=== PATIENT | male | born 1965 | race Two or more races ===

== ENCOUNTER 2018-07-08 08:47 | Emergency (ER) | payer SELFPAY ==
[2018-07-08] MEDS ORDERED: ASPIRIN 81 MG TABLET, CHEWABLE PO ONE (09:46)
--- NOTE | 2018-07-08 09:48 | ER Document Report ---
ED Medical Screen (RME) - General Chief Complaint: Leg Swelling Stated Complaint: LEG SWELLING AND PAIN Time Seen by Provider: 07/08/18 09:37 Primary Care Provider: MAIKEL SKAGGS [Primary Care Provider] - Follow up as needed Mode of Arrival: Ambulatory Information source: Patient, Relative TRAVEL OUTSIDE OF THE [place] IN LAST 30 DAYS: No - HPI Patient complains to provider of: LEG SWELLING, CP Notes: 07/08/18 09:47 Patient here with family member at the bedside helping with communication by interpreting. Patient has a history of high blood pressure as well as leg swelling. For the last few months he is noticed increased leg swelling is been having some intermittent chest pain. He supposed to be on blood pressure medication as well as diuretics but does not take them. Patient does drink alcohol daily. Exam No distress, nontoxic. Heart sounds normal. Lungs clear. Pitting edema to the bilateral lower extremities. Plan CBC, CMP, CPK, CK-MB, BNP, troponin, EKG, chest x-ray. An initial examination was made on the patient as part of the triage process, and it was determined a more comprehensive evaluation was necessary. Initial labs were ordered and patient was transferred to another provider in the ED who assumed care and finished evaluation and plan. - Related Data Allergies/Adverse Reactions: No Known Allergies Allergy (Unverified 07/08/18 08:50) Physical Exam - Vital signs Vitals: Temp Pulse Resp BP Pulse Ox 97.7 F 87 18 209/115 H 94 07/08/18 08:54 07/08/18 08:54 07/08/18 08:54 07/08/18 08:54 07/08/18 08:54 Course - Vital Signs Vital signs: Temp Pulse Resp BP Pulse Ox 97.7 F 87 18 209/115 H 94 07/08/18 08:54 07/08/18 08:54 07/08/18 08:54 07/08/18 08:54 07/08/18 08:54 Doctor's Discharge - Discharge Referrals: MAIKEL SKAGGS [Primary Care Provider] - Follow up as needed
[2018-07-08 10:18] LABS: ABSOLUTE LYMPHOCYTES (AUTO) 0.7 10^3/uL (0.5-4.7); ABSOLUTE MONOCYTES (AUTO) 0.3 10^3/uL (0.1-1.4); ABSOLUTE NEUT (AUTO) 1.4 10^3/uL (1.7-8.2); BASOPHILS % (AUTO) 0.8 % (0-2); EOSINOPHILS % (AUTO) 1.7 % (0-6); HEMATOCRIT 43.7 % (37.9-51.0); LYMPHOCYTES % (AUTO) 29.8 % (13-45); MEAN CORPUSCULAR HEMOGLOBIN 33.2 pg (27.0-33.4); MEAN CORPUSCULAR HGB CONC 34.2 g/dL (32.0-36.0); MEAN CORPUSCULAR VOLUME 97 fl (80-97); MONOCYTES % (AUTO) 10.3 % (3-13); RED BLOOD COUNT 4.51 10^6/uL (4.35-5.55); SEGMENTED NEUTROPHILS % (AUTO) 57.4 % (42-78); TOTAL CELLS COUNTED % (AUTO) 100 %; WHITE BLOOD COUNT 2.4 10^3/uL (4.0-10.5)
--- NOTE | 2018-07-08 10:34 | RADIOLOGY REPORT (SQ) ---
EXAM DESCRIPTION: CHEST SINGLE VIEW COMPLETED DATE/TIME: 07/08/2018 10:18 am REASON FOR STUDY: CP, LEG SWELLING COMPARISON: None. EXAM PARAMETERS: NUMBER OF VIEWS: One view. TECHNIQUE: Single frontal radiographic view of the chest acquired. RADIATION DOSE: NA LIMITATIONS: Poor inspiratory effort. FINDINGS: LUNGS AND PLEURA: No opacities, masses or pneumothorax. No pleural effusion. MEDIASTINUM AND HILAR STRUCTURES: No masses. Contour normal. HEART AND VASCULAR STRUCTURES: Cardiomegaly. Normal vasculature. BONES: No acute findings. HARDWARE: None in the chest. OTHER: No other significant finding. IMPRESSION: Cardiomegaly. No acute findings. TECHNICAL DOCUMENTATION: JOB ID: [id number] [employer]- All Rights Reserved Reading location - IP/workstation name: [email or web address]
[2018-07-08 10:46] LABS: PLATELET COUNT 53 10^3/uL (150-450)
[2018-07-08 10:52] LABS: ALANINE AMINOTRANSFERASE 36 U/L (21-72); ALBUMIN 4.1 g/dL (3.5-5.0); ALKALINE PHOSPHATASE 141 U/L (38-126); ANION GAP 12 (5-19); ASPARTATE AMINO TRANSFERASE 76 U/L (17-59); BILIRUBIN,DIRECT 0.6 mg/dL (0.0-0.4); BILIRUBIN,TOTAL 2.9 mg/dL (0.2-1.3); BLOOD UREA NITROGEN 6 mg/dL (7-20); CALCIUM 8.4 mg/dL (8.4-10.2); CARBON DIOXIDE 28 mmol/L (22-30); CHLORIDE 104 mmol/L (98-107); CREATINE KINASE 226 U/L (55-170); GLUCOSE 134 mg/dL (75-110); POTASSIUM 3.6 mmol/L (3.6-5.0); SODIUM 144.4 mmol/L (137-145); TOTAL PROTEIN 9.1 g/dL (6.3-8.2)
--- NOTE | 2018-07-08 10:57 | EKG REPORT ---
SEVERITY:- ABNORMAL ECG - SINUS RHYTHM NONSPECIFIC INTRAVENTRICULAR CONDUCTION DELAY : Confirmed by: Bethany Akbar 08-Jul-2018 10:57:13
[2018-07-08 11:07] LABS: NT PRO BNP 42 pg/mL (5-900)
[2018-07-08 11:08] LABS: TROPONIN I < 0.012 ng/mL
--- NOTE | 2018-07-08 14:10 | ER Document Report ---
ED Extremity Problem, Lower - General Chief Complaint: Leg Swelling Stated Complaint: LEG SWELLING AND PAIN Time Seen by Provider: 07/08/18 09:37 Primary Care Provider: MAIKEL SKAGGS [Primary Care Provider] - Follow up as needed Mode of Arrival: Ambulatory Notes: 53-year-old male to the emergency room chief complaint of swelling to his bilateral lower extremities. Wants to make sure that there is not a problem with his blood. States that it does hurt intermittently. Denies any trauma to the legs. No history of blood clots or DVTs. No other major issues at this time. Patient does state that he does not drink a lot of water but drinks a lot of beer. Patient had with a motor vehicle parts interpreter over the phone. TRAVEL OUTSIDE OF THE [place] IN LAST 30 DAYS: No - HPI Patient complains to provider of: Pain, Swelling Location: Leg Occurred: Other - 6 months ago - Related Data Allergies/Adverse Reactions: No Known Allergies Allergy (Unverified 07/08/18 08:50) Past Medical History - General Information source: Patient, Relative - Social History Smoking Status: Never Smoker Chew tobacco use (# tins/day): No Frequency of alcohol use: Heavy Drug Abuse: None Family History: Hypertension Patient has suicidal ideation: No Patient has homicidal ideation: No - Past Medical History Cardiac Medical History: Reports: Hx Hypertension Renal/ Medical History: Denies: Hx Peritoneal Dialysis Review of Systems - Review of Systems Notes: Constitutional: denies: Chills, Diaphoresis, Fever, Malaise, Weakness EENT: denies: Eye discharge, Blurred vision, Tearing, Double vision, Nose congestion, Nose discharge, Throat swelling, Mouth pain Cardiovascular: denies: Palpitations, Heart racing, Orthopnea, Dyspnea, Chest pain Respiratory: denies: Cough, Hurts to breathe, Wheezing, Shortness of breath Gastrointestinal: denies: Abdominal pain, Diarrhea, Nausea, Vomiting, Black stools, bright red blood in stool Genitourinary: denies: Burning, Dysuria, Discharge, Frequency, Flank pain, Hematuria Musculoskeletal: denies: Joint pain, Joint swelling, Muscle pain, Muscle stiffness, back pain. Complaining of swelling to his bilateral lower extremities. Hematologic/Lymphatic: denies: Anemia, Easy bleeding, Easy bruising, Blood clots Neurological/Psychological: denies: Confusion, Dementia, Depression, Loss of consciousness Skin: No lesions, no masses, no skin breakdown, no abscesses Physical Exam - Vital signs Vitals: Temp Pulse Resp BP Pulse Ox 97.7 F 87 18 209/115 H 94 07/08/18 08:54 07/08/18 08:54 07/08/18 08:54 07/08/18 08:54 07/08/18 08:54 Interpretation: Hypertensive - General General appearance: Appears well, Alert - HEENT Head: Normocephalic, Atraumatic Eyes: Normal Pupils: PERRL - Respiratory Respiratory status: No respiratory distress Chest status: Nontender Breath sounds: Normal Chest palpation: Normal - Cardiovascular Rhythm: Regular Heart sounds: Normal auscultation Murmur: No - Abdominal Inspection: Normal Distension: No distension Bowel sounds: Normal Tenderness: Nontender Organomegaly: No organomegaly - Back Back: Normal, Nontender - Extremities General upper extremity: Normal inspection, Nontender, Normal color, Normal ROM, Normal temperature General lower extremity: Normal inspection, Nontender, Edema - 2+ pitting edema to the bilateral feet and pretibial area. Bounding pulses of the dorsalis pedis bilaterally. No obvious skin breakdown on the bottom of the feet or toes. No signs of cellulitis., Normal color, Normal ROM, Normal temperature, Normal weight bearing. No: Lucien's sign - Neurological Neuro grossly intact: Yes Cognition: Normal Orientation: AAOx4 Marlon Coma Scale Eye Opening: Spontaneous Marlon Coma Scale Verbal: Oriented Marlon Coma Scale Motor: Obeys Commands [place] Coma Scale Total: 15 Speech: Normal Motor strength normal: LUE, RUE, LLE, RLE Sensory: Normal - Psychological Associated symptoms: Normal affect, Normal mood - Skin Skin Temperature: Warm Skin Moisture: Dry Skin Color: Normal Course - Re-evaluation Re-evalutation: 07/08/18 17:30 This is a [place] Citizen-speaking only 53-year-old male with lower extremity edema who reports heavy drinking. Does not appear intoxicated at this time. 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 Does have elevated liver function studies. Does have a leukopenia as well as thrombocytopenia. No fever. A hepatitis panel was ordered. He is hypertensive so we will more likely start him on some antihypertensive medication. Will order a lower extre mity ultrasound. His chest x-ray reveals cardiomegaly however his BNP is fairly unremarkable. 07/08/18 17:31 07/08/18 17:32 07/08/18 17:32 07/08/18 17:33 Laboratory 07/08/18 07/08/18 07/08/18 10:02 10:02 10:02 WBC 2.4 L RBC 4.51 Hgb 15.0 Hct 43.7 MCV 97 MCH 33.2 MCHC 34.2 RDW 16.0 H Plt Count 53 L Seg Neutrophils % 57.4 Lymphocytes % 29.8 Monocytes % 10.3 Eosinophils % 1.7 Basophils % 0.8 Absolute Neutrophils 1.4 L Absolute Lymphocytes 0.7 Absolute Monocytes 0.3 Absolute Eosinophils 0.0 Absolute Basophils 0.0 PT INR APTT Sodium 144.4 Potassium 3.6 Chloride 104 Carbon Dioxide 28 Anion Gap 12 BUN 6 L Creatinine 0.44 L Est GFR ( Amer) > 60 Est GFR (Non-Af Amer) > 60 Glucose 134 H Calcium 8.4 Total Bilirubin 2.9 H Direct Bilirubin 0.6 H Neonat Total Bilirubin Not Reportable Neonat Direct Bilirubin Not Reportable Neonat Indirect Bili Not Reportable AST 76 H ALT 36 Alkaline Phosphatase 141 H Creatine Kinase 226 H CK-MB (CK-2) 1.50 Troponin I < 0.012 NT-Pro-B Natriuret Pep 42 Total Protein 9.1 H Albumin 4.1 07/08/18 10:02 WBC RBC Hgb Hct MCV MCH MCHC RDW Plt Count Seg Neutrophils % Lymphocytes % Monocytes % Eosinophils % Basophils % Absolute Neutrophils Absolute Lymphocytes Absolute Monocytes Absolute Eosinophils Absolute Basophils PT 16.7 H INR 1.29 APTT 42.9 H Sodium Potassium Chloride Carbon Dioxide Anion Gap BUN Creatinine Est GFR ( Amer) Est GFR (Non-Af Amer) Glucose Calcium Total Bilirubin Direct Bilirubin Neonat Total Bilirubin Neonat Direct Bilirubin Neonat Indirect Bili AST ALT Alkaline Phosphatase Creatine Kinase CK-MB (CK-2) Troponin I NT-Pro-B Natriuret Pep Total Protein Albumin Chest X-Ray 07/08/18 09:46 IMPRESSION: Cardiomegaly. No acute findings. - Vital Signs Vital signs: Temp Pulse Resp BP Pulse Ox 97.7 F 87 17 177/97 H 93 07/08/18 08:54 07/08/18 08:54 07/08/18 17:01 07/08/18 17:01 07/08/18 17:01 - Laboratory Result Diagrams: 07/08/18 10:02 07/08/18 10:02 Laboratory results interpreted by me: 07/08/18 07/08/18 07/08/18 10:02 10:02 10:02 WBC 2.4 L RDW 16.0 H Plt Count 53 L Absolute Neutrophils 1.4 L PT 16.7 H APTT 42.9 H BUN 6 L Creatinine 0.44 L Glucose 134 H Total Bilirubin 2.9 H Direct Bilirubin 0.6 H AST 76 H Alkaline Phosphatase 141 H Creatine Kinase 226 H Total Protein 9.1 H - EKG Interpretation by Me EKG shows normal: Sinus rhythm, [place], QRS Complexes, ST-T Waves. abnormal: Intervals - Nonspecific intraventricular conduction delay Discharge - Discharge Clinical Impression: Peripheral edema, Thrombocytopenia Hypertension Qualifiers: Hypertension type: unspecified Qualified Code(s): I10 - Essential (primary) hypertension Leukopenia Qualifiers: Leukopenia type: unspecified Qualified Code(s): D72.819 - Decreased white blood cell count, unspecified Condition: Good Disposition: HOME, SELF-CARE Instructions: Edema, Peripheral ([facility]), Thrombocytopenia ([facility]), High Blood Pressure, Requiring Treatment ([facility]) Prescriptions: Furosemide [Lasix 40 mg Tablet] 40 mg PO QAM 30 Days #30 tablet Losartan Potassium [Cozaar 50 mg Tablet] 50 mg PO DAILY 30 Days #30 tablet Potassium Chloride 20 meq PO DAILY 30 Days #30 tablet.er Referrals: GONZALES WATSON MD [ACTIVE STAFF] - Follow up in 3-5 days GORDY SUMMERS MD [ACTIVE STAFF] - Follow up in 3-5 days Print Language: [place] Citizen
[2018-07-08] MEDS ORDERED: FUROSEMIDE 40 MG TABLET PO ONE (15:43)
[2018-07-08] MEDS ORDERED: LOSARTAN POTASSIUM 50 MG TABLET PO ONE (15:44)
[2018-07-08 16:37] LABS: INTERNATIONAL RATION (INR) 1.29; PROTHROMBIN TIME 16.7 SEC (11.4-15.4)
[2018-07-08 16:38] LABS: PARTIAL THROMBOPLASTIN TIME 42.9 SEC (23.5-35.8)
--- NOTE | 2018-07-08 23:07 | RADIOLOGY REPORT (SQ) ---
EXAM DESCRIPTION: [facility]: US EXTREMITY VEINS BILATERAL CLINICAL HISTORY: 53 years Male; edema bilateral with pain TECHNIQUE: Multiple grayscale sonographic images of both legs were obtained utilizing a high-frequency linear array transducer supplemented with color Doppler, compression and augmentation techniques. COMPARISON: None. FINDINGS: Right leg veins: Common femoral: normal Greater saphenous: normal upper Superficial femoral: normal mid Superficial femoral: normal lower Superficial femoral: normal Popliteal: normal Posterior Tibial: normal Left leg veins: Common femoral: normal Greater saphenous: normal upper Superficial femoral: normal mid Superficial femoral: normal lower Superficial femoral: normal Popliteal: normal Posterior Tibial: normal 1 x 1.2 x 1.3 cm cystic structure in the popliteal fossa is likely a Cope's cyst. IMPRESSION: 1. No sonographic evidence for lower extremity deep venous thrombosis in either leg. 2. Probable left Cope's cyst.
[2018-07-08 23:12] VITALS: BP 137/88
[2018-07-10 10:37] LABS: HEPATITIS A AB IGM Negative (Negative); HEPATITIS B CORE AB IGM Negative (Negative); HEPATITS B SURFACE ANTIGEN Negative (Negative)
[2018-07-10 11:16] LABS: HEPATITIS C VIRUS ANTIBODY <0.1 s/co ratio (0.0-0.9)
== END 2018-07-08 21:11 | disposition home or self-care (01) ==
LOC: ER 08:47
DX: R60.0 Localized edema (principal); D69.6 Thrombocytopenia, unspecified; I10 Essential (primary) hypertension; D72.819 Decreased white blood cell count, unspecified; M79.89 Other specified soft tissue disorders; M79.604 Pain in right leg; M79.605 Pain in left leg
CPT/HCPCS: 36415; 71045; 80053; 80074; 82550; 82553; 83880; 84484; 85025; 85610; 85730; 93005; 93010; 93970; 99284

== ENCOUNTER 2018-09-11 08:20 | Emergency (ER) | payer SELFPAY ==
[2018-09-11 10:35] LABS: ALANINE AMINOTRANSFERASE 24 U/L (21-72); ALBUMIN 3.7 g/dL (3.5-5.0); ALKALINE PHOSPHATASE 109 U/L (38-126); ANION GAP 5 (5-19); ASPARTATE AMINO TRANSFERASE 48 U/L (17-59); BILIRUBIN,DIRECT 0.2 mg/dL (0.0-0.4); BILIRUBIN,TOTAL 2.3 mg/dL (0.2-1.3); BLOOD UREA NITROGEN 11 mg/dL (7-20); CALCIUM 8.7 mg/dL (8.4-10.2); CARBON DIOXIDE 30 mmol/L (22-30); CHLORIDE 103 mmol/L (98-107); GLUCOSE 249 mg/dL (75-110); POTASSIUM 3.6 mmol/L (3.6-5.0); TOTAL PROTEIN 7.9 g/dL (6.3-8.2)
[2018-09-11 12:21] LABS: ABSOLUTE EOSINOPHILS # (AUTO) 0.1 10^3/uL (0.0-0.6); ABSOLUTE LYMPHOCYTES (AUTO) 0.8 10^3/uL (0.5-4.7); ABSOLUTE MONOCYTES (AUTO) 0.4 10^3/uL (0.1-1.4); ABSOLUTE NEUT (AUTO) 2.1 10^3/uL (1.7-8.2); BASOPHILS % (AUTO) 0.9 % (0-2); EOSINOPHILS % (AUTO) 3.7 % (0-6); HEMATOCRIT 39.1 % (37.9-51.0); HEMOGLOBIN 13.8 g/dL (13.5-17.0); LYMPHOCYTES % (AUTO) 22.7 % (13-45); MEAN CORPUSCULAR HEMOGLOBIN 33.8 pg (27.0-33.4); MEAN CORPUSCULAR HGB CONC 35.3 g/dL (32.0-36.0); MEAN CORPUSCULAR VOLUME 96 fl (80-97); MONOCYTES % (AUTO) 11.3 % (3-13); RED BLOOD COUNT 4.07 10^6/uL (4.35-5.55); RED CELL DISTRIBUTION WIDTH 14.8 % (11.5-14.0); SEGMENTED NEUTROPHILS % (AUTO) 61.4 % (42-78); TOTAL CELLS COUNTED % (AUTO) 100 %; WHITE BLOOD COUNT 3.4 10^3/uL (4.0-10.5)
[2018-09-11 12:43] LABS: PLATELET COUNT 55 10^3/uL (150-450)
--- NOTE | 2018-09-11 14:27 | ER Document Report ---
ED General - General Chief Complaint: Leg Swelling Stated Complaint: LEG PAIN Time Seen by Provider: 09/11/18 09:05 TRAVEL OUTSIDE OF THE [place] IN LAST 30 DAYS: No - HPI Notes: Patient is a 53-year-old male presents to the emergency department for evaluation. His friend is with him, he acts as service center representative, as the patient speaks no Finnish. The patient is able to consent to this. The patient is here complaining of bilateral leg swelling. This is been going on for the last few years. He is concerned because he has intermittent changing in the color of his legs, states they are turning black. He denies any numbness or tingling. He states he was given medication to help with this. He admits that this is only from the emergency medicine doctor. He has not establish care with a primary care physician. He states he has intermittent pain and pressure in his legs but denies any of that now. He denies any chest pain or trouble breathing. He states his swelling is improved when he wakes in the morning. - Related Data Allergies/Adverse Reactions: acetaminophen [From Tylenol] Allergy (Verified 09/11/18 08:21) Past Medical History - General Information source: Patient, Friend - Social History Smoking Status: Never Smoker Family History: DM, Hypertension Patient has suicidal ideation: No Patient has homicidal ideation: No - Past Medical History Cardiac Medical History: Reports: Hx Hypertension Renal/ Medical History: Denies: Hx Peritoneal Dialysis Review of Systems - Review of Systems Constitutional: No symptoms reported EENT: No symptoms reported Cardiovascular: See HPI Respiratory: No symptoms reported Gastrointestinal: No symptoms reported Male Genitourinary: No symptoms reported Musculoskeletal: See HPI Skin: See HPI Neurological/Psychological: No symptoms reported Physical Exam - Vital signs Vitals: Temp Pulse Resp BP Pulse Ox 98.8 F 86 20 166/91 H 95 09/11/18 08:25 09/11/18 08:25 09/11/18 08:25 09/11/18 08:25 09/11/18 08:25 - Notes Notes: Vital signs reviewed, please refer to chart. Head is normocephalic, atraumatic. Pupils equal round, reactive to light. Neck is supple without meningismus. Heart is regular rate and rhythm. Lungs are clear to auscultation bilaterally. Abdomen is soft, nontender, normoactive bowel sounds throughout. Extremities without cyanosis, clubbing. He has 2+ edema to bilateral lower extremities, to the midshin. He has skin changes consistent with hemosiderin deposit and chronic vascular disease. Posterior calves are nontender. Peripheral pulses are equal. Skin is warm and dry. Patient is awake, alert, neurological exam is nonfocal. Course - Re-evaluation Re-evalutation: 09/11/18 14:25 Patient presents emergency department for evaluation. He is hypertensive. He admits he is not had any of the blood pressure medication that he was taken before. He was told to wear compression stockings in the past but does not wear them. He has not establish care with a primary care physician as of yet. He has no posterior calf tenderness. He has had Dopplers in the past which were unremarkable. He is oxygenating well. His lungs are clear. At this point metabolic panel and CBC were ordered. His bilirubin had been high in the past, it is improving slightly. Otherwise his laboratory investigations revealed a significant hyperglycemia. This is new. The patient was notified of this, as well as his likely diagnosis of diabetes. He was given compression stockings here. I will then treat him for his high blood pressure. We discussed the mechanism by which he has impeded vascular flow. His peripheral pulses are excellent, it is more just venous return that is an issue. He is told to lose weight. He is told to wear compression stockings. I will then treat him for high blood pressure as well as diabetes. The importance of follow-up with a primary care provider was stressed and great detail. He voiced understanding to this. Otherwise we will send him home on the losartan, which he Monroe been taking, as well as low-dose metformin. He is to return to the ED with worsening or new concerning symptoms of any sort. - Vital Signs Vital signs: Temp Pulse Resp BP Pulse Ox 98.8 F 86 20 166/91 H 95 09/11/18 08:25 09/11/18 08:25 09/11/18 08:25 09/11/18 08:25 09/11/18 08:25 - Laboratory Result Diagrams: 09/11/18 12:12 09/11/18 10:00 Laboratory results interpreted by me: 09/11/18 09/11/18 10:00 12:12 WBC 3.4 L RBC 4.07 L MCH 33.8 H RDW 14.8 H Plt Count 55 L Creatinine 0.44 L Glucose 249 H Total Bilirubin 2.3 H Discharge - Discharge Clinical Impression: Peripheral edema, Peripheral vascular disease, Thrombocytopenia Hypertension Qualifiers: Hypertension type: unspecified Qualified Code(s): I10 - Essential (primary) hypertension Diabetes Qualifiers: Diabetes mellitus type: type 2 Diabetes mellitus snf insulin 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 Follow-up with primary care physician as soon as possible. Take medications as prescribed. Return to the emergency department with worsening or new concerning symptoms of any sort.
[2018-09-11 15:26] VITALS: BP 187/99
== END 2018-09-11 15:27 | disposition home or self-care (01) ==
LOC: ER 08:20
DX: R60.0 Localized edema (principal); I73.9 Peripheral vascular disease, unspecified; D69.6 Thrombocytopenia, unspecified; I10 Essential (primary) hypertension; E11.9 Type 2 diabetes mellitus without complications
CPT/HCPCS: 36415; 80053; 85025; 99283

== ENCOUNTER 2019-05-10 14:44 | Inpatient (IN) | payer OTHER ==
--- NOTE | 2019-05-10 15:15 | ER Document Report ---
ED Medical Screen (RME) - General Chief Complaint: Leg Pain Stated Complaint: LEG PAIN Time Seen by Provider: 05/10/19 15:04 Mode of Arrival: Ambulatory Information source: Patient Notes: 53-year-old male with history of high blood pressure, disheveled, reports to the emergency department with left lower leg pain. Patient reports he hit his leg approximately 20 days ago and now has a wound that is draining. Patient wound is approximately 15 x 10 to the anterior of his left quiroz, draining. He denies history of diabetes but diabetes was mentioned on his last visit. Denies fever vomiting diarrhea. Patient speaks [place] only. I have greeted and performed a rapid initial assessment of this patient. A comprehensive ED assessment and evaluation of the patient, analysis of test res ults and completion of the medical decision making process will be conducted by additional ED providers. TRAVEL OUTSIDE OF THE [place] IN LAST 30 DAYS: No - Related Data Allergies/Adverse Reactions: acetaminophen [From Tylenol] Allergy (Verified 09/11/18 08:21) Past Medical History - Past Medical History Cardiac Medical History: Reports: Hx Hypertension Renal/ Medical History: Denies: Hx Peritoneal Dialysis Physical Exam - Vital signs Vitals: Temp Pulse Resp BP Pulse Ox 99.8 F 112 H 22 H 163/100 H 98 05/10/19 14:53 05/10/19 14:53 05/10/19 14:53 05/10/19 14:53 05/10/19 14:53 Course - Vital Signs Vital signs: Temp Pulse Resp BP Pulse Ox 99.8 F 112 H 22 H 163/100 H 98 05/10/19 14:53 05/10/19 14:53 05/10/19 14:53 05/10/19 14:53 05/10/19 14:53
--- NOTE | 2019-05-10 16:09 | RADIOLOGY REPORT (SQ) ---
EXAM DESCRIPTION: TIBIA FIBULA LEFT COMPLETED DATE/TIME: 05/10/2019 3:52 pm REASON FOR STUDY: PAIN, OPEN WOUND COMPARISON: None. NUMBER OF VIEWS: Two views. TECHNIQUE: Two radiographic images acquired of the left tibia and fibula to include the knee and ank le in at least one projection. LIMITATIONS: None. FINDINGS: MINERALIZATION: Osteopenia. BONES: No acute fracture or dislocation. There is no erosion or periosteal reaction. SOFT TISSUES: No subcutaneous emphysema or radiopaque foreign body. OTHER: No other finding. IMPRESSION: No acute osseous abnormality of the left tibia and fibula. TECHNICAL DOCUMENTATION: JOB ID: [id number] 2010 [employer]- All Rights Reserved Reading location - IP/workstation name: [email or web address]
[2019-05-10 16:28] LABS: VENOUS BLOOD BASE EXCESS 5.6 mmol/L; VENOUS BLOOD HCO3 31.4 mmol/L (20-32); VENOUS BLOOD PCO2 49.7 mmHg (35-63); VENOUS BLOOD PH 7.42 (7.30-7.42)
[2019-05-10 16:30] LABS: ABSOLUTE LYMPHOCYTES (AUTO) 0.5 10^3/uL (0.5-4.7); ABSOLUTE MONOCYTES (AUTO) 0.3 10^3/uL (0.1-1.4); ABSOLUTE NEUT (AUTO) 3.9 10^3/uL (1.7-8.2); BASOPHILS % (AUTO) 0.3 % (0-2); EOSINOPHILS % (AUTO) 0.9 % (0-6); HEMATOCRIT 44.9 % (37.9-51.0); LYMPHOCYTES % (AUTO) 9.6 % (13-45); MEAN CORPUSCULAR HGB CONC 35.6 g/dL (32.0-36.0); MEAN CORPUSCULAR VOLUME 98 fl (80-97); MONOCYTES % (AUTO) 6.6 % (3-13); RED BLOOD COUNT 4.58 10^6/uL (4.35-5.55); RED CELL DISTRIBUTION WIDTH 17.1 % (11.5-14.0); SEGMENTED NEUTROPHILS % (AUTO) 82.6 % (42-78); TOTAL CELLS COUNTED % (AUTO) 100 %; WHITE BLOOD COUNT 4.7 10^3/uL (4.0-10.5)
[2019-05-10 16:43] LABS: PLATELET COUNT 79 10^3/uL (150-450)
[2019-05-10 16:45] LABS: ALKALINE PHOSPHATASE 190 U/L (38-126); ANION GAP 9 (5-19); ASPARTATE AMINO TRANSFERASE 92 U/L (17-59); BILIRUBIN,TOTAL 3.3 mg/dL (0.2-1.3); BLOOD UREA NITROGEN 5 mg/dL (7-20); CALCIUM 8.5 mg/dL (8.4-10.2); CARBON DIOXIDE 31 mmol/L (22-30); CHLORIDE 98 mmol/L (98-107); GLUCOSE 118 mg/dL (75-110); POTASSIUM 3.7 mmol/L (3.6-5.0); TOTAL PROTEIN 10.2 g/dL (6.3-8.2)
[2019-05-10] MEDS ORDERED: DIPH/PERTUSS(ACELL)/TETANUS VAC/PF 0.5 ML SYR (>=10YO) IM ONE (17:12)
[2019-05-10] MEDS ORDERED: VANCOMYCIN HCL INJ 1000 MG VIAL IV ONE (17:12)
[2019-05-10] MEDS ORDERED: AMPICILLIN SOD/SULBACTAM 3 GM VIAL IV ONE (17:13)
--- NOTE | 2019-05-10 17:18 | ER Document Report ---
Entered by FABIO LARSEN SCRIBE 05/10/19 [id number] Acting as scribe for:MARISELA VIRAMONTES DO ED Extremity Problem, Lower - General Chief Complaint: Wound Infection Stated Complaint: LEG PAIN Time Seen by Provider: 05/10/19 15:04 Mode of Arrival: Ambulatory Information source: Patient Notes: This 53-year-old male patient presents to the emergency department today with co mplaints of an ulceration to his left anterior quiroz. Patient had a mechanical fall 3 weeks ago at home when he scraped his left quiroz on a step. Since this misstep he has had increasing swelling, pain, and drainage from the left quiroz. Family at bedside reports that the patient never goes to see a doctor and did not want to come today but they made him. Patient denies fevers or chills. TRAVEL OUTSIDE OF THE [place] IN LAST 30 DAYS: No - Related Data Allergies/Adverse Reactions: acetaminophen [From Tylenol] Allergy (Verified 09/11/18 08:21) Past Medical History - General Information source: Patient - Social History Smoking Status: Never Smoker Cigarette use (# per day): No Frequency of alcohol use: Occasional Drug Abuse: Marijuana Lives with: Family Family History: DM, Hypertension Patient has suicidal ideation: No Patient has homicidal ideation: No - Past Medical History Cardiac Medical History: Reports: Hx Hypertension Review of Systems - Review of Systems Constitutional: denies: Fever EENT: No symptoms reported Cardiovascular: No symptoms reported Respiratory: No symptoms reported Gastrointestinal: No symptoms reported Genitourinary: No symptoms reported Male Genitourinary: No symptoms reported Musculoskeletal: No symptoms reported Skin: See HPI, Lesions Hematologic/Lymphatic: No symptoms reported Neurological/Psychological: No symptoms reported -: Yes All other systems reviewed and negative Physical Exam - Vital signs Vitals: Temp Pulse Resp BP Pulse Ox 99.8 F 112 H 22 H 163/100 H 98 05/10/19 14:53 05/10/19 14:53 05/10/19 14:53 05/10/19 14:53 05/10/19 14:53 - Notes Notes: Physical Exam: General: Alert, chronically ill-appearing, obese. HEENT: Normocephalic. Atraumatic. PERRL. Extraocular movements intact. No posterior oropharynx erythema or exudate, airway is patent. TMs are clear and non-bulging bilaterally. Poor dentition throughout. Neck: Supple. Non-tender. Respiratory: No respiratory distress. Clear and equal breath sounds bilaterally. Cardiovascular: Regular rate and rhythm. Abdominal: Morbidly obese. Non-tender. No distension. Normal Bowel Sounds. Back: No gross abnormalities. Extremities: Moves all four extremities. Upper extremities: Normal inspection. Normal ROM. Lower extremities: Left anterior tibia has a 15 cm x 10 cm ulceration that is somewhat malodorous with serous discharge. Left lower extremity is moderately larger than the right lower extremity. Neurological: Normal cognition. AAOx4. Normal speech. Psychological: Normal affect. Normal Mood. Skin: See lower extremity exam Course - Re-evaluation Re-evalutation: 05/10/19 17:45 MDM 53 year old male is noncompliant with follow up care - only visits locally have been in ED ever - has had a distant tetanus shot "many years ago" and left anterior quiroz ulcer. He has sts of that left leg and the ulcer has a bit of an odor to it and has increased in size at home. 05/10/19 17:52 Verbal report from the [facility] is that the ultrasound is - for dvt. 05/10/19 17:52 [address] have discussed [address] Dr[address] Ramesh and he has graciously agreed to see and evaluate for admission. - Vital Signs Vital signs: Temp Pulse Resp BP Pulse Ox 99.8 F 112 H 22 H 163/100 H 98 05/10/19 14:53 05/10/19 14:53 05/10/19 14:53 05/10/19 14:53 05/10/19 14:53 - Laboratory Result Diagrams: 05/10/19 16:03 05/10/19 16:03 Laboratory results interpreted by me: 05/10/19 05/10/19 05/10/19 16:03 16:03 16:05 MCV 98 H MCH 35.0 H RDW 17.1 H Plt Count 79 L Lymph % (Auto) 9.6 L Seg Neutrophils % 82.6 H Carbon Dioxide 31 H BUN 5 L Creatinine 0.49 L Glucose 118 H Total Bilirubin 3.3 H Direct Bilirubin 1.0 H AST 92 H Alkaline Phosphatase 190 H C-Reactive Protein 34.6 H Total Protein 10.2 H - Diagnostic Test Radiology reviewed: Reports reviewed Discharge - Discharge Clinical Impression: Diabetic leg ulcer, Thrombocytopenia Hypertension Qualifiers: Hypertension type: unspecified Qualified Code(s): I10 - Essential (primary) hypertension Condition: Good Disposition: ADMITTED INPATIENT Admitting Provider: Gadiel (Hospitalist) Unit Admitted: Medical Floor I personally performed the services described in the documentation, reviewed and edited the documentation which was dictated to the scribe in my presence, and it accurately records my words and actions.
--- NOTE | 2019-05-10 18:18 | RADIOLOGY REPORT (SQ) ---
EXAM DESCRIPTION: VENOUS UNILATERAL LOWER COMPLETED DATE/TIME: 05/10/2019 6:00 pm REASON FOR STUDY: left leg pain/ swelling COMPARISON: None. TECHNIQUE: Dynamic and static brenner scale and color images acquired of the left leg venous system. Se lected spectral images acquired with additional compression and augmentation maneuvers. The contralat eral common femoral vein and saphenofemoral junction were also imaged. Images stored on PACS. LIMITATIONS: None. FINDINGS: COMMON FEMORAL: Normal phasicity, compression and augmentation. No visualized echogenic ma terial on brenner scale. No defects on color images. FEMORAL: Normal compression and augmentation. No visualized echogenic material on brenner scale. No defe cts on color images. POPLITEAL: Normal compression, augmentation. No visualized echogenic material on brenner scale. No defec ts on color images. CALF VESSELS: Normal compression, augmentation. No visualized echogenic material on brenner scale. No de fects on color images. GSV and SSV: Normal compression, augmentation. No visualized echogenic material on brenner scale. No def ects on color images. ANY DEEP VENOUS INSUFFICIENCY: Not evaluated. ANY EVIDENCE OF POPLITEAL CYST: No. OTHER: No other significant finding. CONTRALATERAL COMMON FEMORAL VEIN AND SAPHENOFEMORAL JUNCTION: Normal phasicity, compression and augmentation. No visualized echogenic material on brenner scale. No de fects on color images. IMPRESSION: NO EVIDENCE OF DVT OR SVT IN THE LEFT LEG. TECHNICAL DOCUMENTATION: JOB ID: [id number] [id number] 2010 [employer]- All Rights Reserved Reading location - IP/workstation name: [email or web address]
[2019-05-10] MEDS ORDERED: TEMAZEPAM 7.5 MG CAPSULE PO PRN (18:57)
[2019-05-10] MEDS ORDERED: ONDANSETRON 4 MG TAB.RAPDIS PO PRN (18:57)
[2019-05-10] MEDS ORDERED: IPRATROPIUM/ALBUTEROL 0.5-2.5 MG/3 ML AMPUL NEB PRN (18:57)
[2019-05-10] MEDS ORDERED: GLUCAGON,HUMAN RECOMB 1 MG INJ IM PRN (19:05)
[2019-05-10] MEDS ORDERED: DEXTROSE 40% GEL 15 GM TUBE PO PRN ×2 (19:05)
[2019-05-10] MEDS ORDERED: DEXTROSE 50%-WATER 25 GM/50 ML DISP.SYRIN IV PRN ×2 (19:05)
--- NOTE | 2019-05-10 19:21 | PDOC H&P ---
History of Present Illness Patient complains of: Swelling and pain in his legs History of Present Illness: NATALIE ZHANG is a 53 year old male Patient presents to the emergency room with swelling and pain in his legs. Patient is Tamaz[place]-speaking and most of the information is obtained from the ED records He apparently fell about 3 weeks ago at home and he scraped his left quiroz on a step. He has since had some drainage and swelling of the same leg. He really does not proceed a physician but came here today due to his symptoms. Doppler studies were done and this revealed no embolism give a prior history of hypertension and his blood Barry was found to be mildly elevated Past Medical History Cardiac Medical History: Reports: Hypertension Past Surgical History Past Surgical History: Reports: None Social History Information Source: [facility], [facility] Records Lives with: Family Smoking Status: Never Smoker - Advance Directive Resuscitation Status: Full Code Family History Family History: DM, Hypertension Parental Family History Reviewed: No Children Family History Reviewed: Yes Sibling(s) Family History Reviewed.: No Medication/Allergy Home Medications: Furosemide [Lasix 40 mg Tablet] 40 mg PO QAM 30 Days #30 tablet 07/08/18 Potassium Chloride 20 meq PO DAILY 30 Days #30 tablet.er 07/08/18 Losartan Potassium [Cozaar 50 mg Tablet] 50 mg PO DAILY 30 Days #30 tablet 09/11/18 Metformin HCl [Glucophage 500 mg Tablet] 500 mg PO BID #60 tablet 09/11/18 Allergies/Adverse Reactions: acetaminophen [From Tylenol] Allergy (Verified 09/11/18 08:21) Review of Systems All systems: reviewed and no additional remarkable complaints except as stated Constitutional: PRESENT: headache(s) Eyes: ABSENT: visual disturbances Nose, Mouth, and Throat: ABSENT: sore throat Cardiovascular: ABSENT: chest pain, orthropnea Respiratory: ABSENT: dyspnea Neurological: PRESENT: as per HPI Physical Exam Vital Signs: Temp Pulse Resp BP Pulse Ox 99.8 F 112 H 22 H 163/100 H 98 05/10/19 14:53 05/10/19 14:53 05/10/19 14:53 05/10/19 14:53 05/10/19 14:53 Intake & Output 05/09/19 05/10/19 05/11/19 06:59 06:59 06:59 Weight 105.4 kg General appearance: PRESENT: no acute distress, well-nourished Eye exam: ABSENT: EOMI Neck exam: PRESENT: full ROM. ABSENT: tenderness Respiratory exam: PRESENT: clear to auscultation radha, unlabored. ABSENT: r honchi, tachypnea, wheezes Cardiovascular exam: PRESENT: RRR, +S1, +S2 GI/Abdominal exam: PRESENT: normal bowel sounds, soft. ABSENT: tenderness Rectal exam: PRESENT: deferred Extremities exam: PRESENT: +2 edema, other - LLE, anteriorly, mid leg with abrasion like wound, bloody drainage Skin exam: PRESENT: skin tears, other - Chronic skin changes bilaterally Results Laboratory Results: 05/10/19 16:03 05/10/19 16:03 05/10/19 05/10/19 05/10/19 16:03 16:03 16:03 WBC 4.7 RBC 4.58 Hgb 16.0 Hct 44.9 MCV 98 H MCH 35.0 H MCHC 35.6 RDW 17.1 H Plt Count 79 L Seg Neutrophils % 82.6 H VBG pH 7.42 VBG pCO2 49.7 VBG HCO3 31.4 VBG Base Excess 5.6 Sodium 137.9 Potassium 3.7 Chloride 98 Carbon Dioxide 31 H Anion Gap 9 BUN 5 L Creatinine 0.49 L Est GFR ( Amer) > 60 Glucose 118 H Lactic Acid Calcium 8.5 Total Bilirubin 3.3 H AST 92 H Alkaline Phosphatase 190 H C-Reactive Protein Total Protein 10.2 H Albumin 4.0 05/10/19 05/10/19 16:03 16:05 WBC RBC Hgb Hct MCV MCH MCHC RDW Plt Count Seg Neutrophils % VBG pH VBG pCO2 VBG HCO3 VBG Base Excess Sodium Potassium Chloride Carbon Dioxide Anion Gap BUN Creatinine Est GFR ( Amer) Glucose Lactic Acid 1.7 Calcium Total Bilirubin AST Alkaline Phosphatase C-Reactive Protein 34.6 H Total Protein Albumin Impressions: Tibia/Fibula X-Ray 05/10/19 15:11 IMPRESSION: No acute osseous abnormality of the left tibia and fibula. Venous Doppler Study 05/10/19 17:11 IMPRESSION: NO EVIDENCE OF DVT OR SVT IN THE LEFT LEG. Assessment and Plan - Diagnosis (1) Diabetic leg ulcer Is this a current diagnosis for this admission?: Yes Plan: Patient was placed on clindamycin. Further adjustment of antibiotic should be done depending on his progress. Attempt to obtain a wound culture (2) Hypertension Qualifiers: Hypertension type: unspecified Qualified Code(s): I10 - Essential (primary) hypertension Is this a current diagnosis for this admission?: Yes Plan: We will continue his antihypertensive (3) Thrombocytopenia Is this a current diagnosis for this admission?: Yes Plan: Along with abnormal LFTs suspect patient may have a history of alcohol use. I will go ahead and order a sonogram of his abdomen to evaluate his liver. Will follow point CMP in a.m. Because of the thrombocytopenia I will hold off on any prophylactic anticoagulant - Plan Summary Summary: Will check hemoglobin A1c, as well as abdominal sonogram - Time Time Spent with patient: 35 or more minutes Anticipated discharge: Home - Inpatient Certification Based on my medical assessment, after consideration of the patient's comorbidities, presenting symptoms, or acuity I expect that the services needed warrant INPATIENT care.: Yes Medical Necessity: Need for IV Antibiotics, Risk of Complication if Not Cared For in Hospital
[2019-05-10 19:26] LABS: APPEARANCE,URINE SLIGHTLY-CLOUDY; BILIRUBIN,URINE SMALL (NEGATIVE); COLOR,URINE AMBER; GLUCOSE, URINE 50 mg/dL (NEGATIVE); KETONES,URINE NEGATIVE (NEGATIVE); LEUKOCYTE ESTERASE,URINE NEGATIVE (NEGATIVE); NITRITE,URINE NEGATIVE (NEGATIVE); PROTEIN,URINE 30 mg/dL (NEGATIVE); URINE SPECIFIC GRAVITY 1.016
[2019-05-10] MEDS ORDERED: CLINDAMYCIN 600 MG/D5W RTU 600 MG/50 ML RTUPB IV SCH (22:00)
[2019-05-11] MEDS ORDERED: INFLUENZA QUAD (6MOS+) 2019-20 VAC 0.5 ML SYR IM ONE (05:40)
[2019-05-11] MEDS: CLINDAMYCIN 600 MG/D5W RTU 600 MG/50 ML RTUPB IV SCH ×2 (06:03→15:46)
[2019-05-11 07:38] LABS: HEMATOCRIT 36.4 % (37.9-51.0); MEAN CORPUSCULAR HEMOGLOBIN 34.7 pg (27.0-33.4); MEAN CORPUSCULAR HGB CONC 35.4 g/dL (32.0-36.0); MEAN CORPUSCULAR VOLUME 98 fl (80-97); RED BLOOD COUNT 3.72 10^6/uL (4.35-5.55); WHITE BLOOD COUNT 3.7 10^3/uL (4.0-10.5)
[2019-05-11] MEDS: INSULIN REG, HUMAN 100 UNIT/ML 3 ML VIAL (PYX) SUBCUT SCH ×2 (07:53→13:56)
[2019-05-11 08:08] LABS: ALBUMIN 2.9 g/dL (3.5-5.0); ALKALINE PHOSPHATASE 133 U/L (38-126); ASPARTATE AMINO TRANSFERASE 66 U/L (17-59); BILIRUBIN,DIRECT 0.8 mg/dL (0.0-0.4); BILIRUBIN,TOTAL 3.8 mg/dL (0.2-1.3); BLOOD UREA NITROGEN 10 mg/dL (7-20); CALCIUM 7.7 mg/dL (8.4-10.2); CARBON DIOXIDE 30 mmol/L (22-30); CHLORIDE 100 mmol/L (98-107); GLUCOSE 117 mg/dL (75-110); POTASSIUM 3.4 mmol/L (3.6-5.0); TOTAL PROTEIN 7.7 g/dL (6.3-8.2)
[2019-05-11 08:19] LABS: HEMOGLOBIN 12.9 g/dL (13.5-17.0)
[2019-05-11 08:20] LABS: ANION GAP 4 (5-19)
[2019-05-11 08:22] LABS: PLATELET COUNT 67 10^3/uL (150-450)
[2019-05-11] MEDS: ACETAMINOPHEN 325 MG TABLET PO PRN ×2 (09:44→23:09)
[2019-05-11] MEDS: DOCUSATE SODIUM 100 MG CAPSULE PO SCH (09:47)
[2019-05-11] MEDS ORDERED: ENOXAPARIN SODIUM INJ 40 MG/0.4 ML DISP.SYRIN SUBCUT SCH (10:00)
--- NOTE | 2019-05-11 11:49 | RADIOLOGY REPORT (SQ) ---
EXAM DESCRIPTION: U/S ABDOMEN COMPLETE W/DOPPLER COMPLETED DATE/TIME: 05/11/2019 10:14 am REASON FOR STUDY: Abnormal LFT COMPARISON: None TECHNIQUE: Dynamic and static grayscale images acquired of the abdomen and recorded on PACS. Michaelao nal selected color Doppler and spectral images recorded. LIMITATIONS: Study limited due to acoustical interference from fat or from air in the bowel. Habitu s also limits. FINDINGS: PANCREAS: Poorly seen secondary to acoustical interference from fat or from air in the bow el. No visualized masses. Duct normal caliber as seen. LIVER: Somewhat macro lobular heterogeneous appearance without discrete mass. Normal size, less than 18 cm. LIVER VASCULATURE: Normal directional flow of the main portal vein and hepatic veins. GALLBLADDER: Possible stones. No wall thickening. ULTRASOUND-DETECTED WHITING'S SIGN: Negative. INTRAHEPATIC DUCTS AND COMMON DUCT:CBD and intrahepatic ducts normal caliber. No filling defects. INFERIOR VENA CAVA: Normal flow. AORTA: No aneurysm. RIGHT KIDNEY: Normal size. Normal echogenicity. No solid or suspicious masses. No hydronephrosis. No calcifications. LEFT KIDNEY: Normal size. Normal echogenicity. No solid or suspicious masses. No hydronephrosis. No calcifications. SPLEEN:Enlarged at just under 19 cm. PERITONEAL AND PLEURAL SPACES: No ascites or effusions. OTHER: No other significant finding. IMPRESSION: 1. Heterogeneous liver without mass. 2. No gross ascites. 3. Splenomegaly, nearly 19 cm. TECHNICAL DOCUMENTATION: JOB ID: [id number] 2010 [employer]- All Rights Reserved Reading location - IP/workstation name: [email or web address]
--- NOTE | 2019-05-11 15:20 | PDOC PROGRESS REPORT ---
Subjective Progress Note for:: 05/11/19 Subjective:: History of Present Illness: NATALIE ZHANG is a 53 year old male Patient presents to the emergency room with swelling and pain in his legs. Patient is Malay-speaking and most of the information is obtained from the ED records He apparently fell about 3 weeks ago at home and he scraped his left quiroz on a step. He has since had some drainage and swelling of the same leg. He really does not proceed a physician but came here today due to his symptoms. Doppler studies were done and this revealed no embolism give a prior history of hypertension and his blood Barry was found to be mildly elevated Interval history: 05/11/2019: patient was seen and examined. his A1c 5.1. his wound actually looks better and he feels better. his wound culture positive for GNR. Reason For Visit: DIABETIC LEG ULCER Physical Exam Vital Signs: Temp Pulse Resp BP Pulse Ox 98.4 F 82 16 143/80 H 96 05/11/19 11:20 05/11/19 13:47 05/11/19 13:47 05/11/19 11:20 05/11/19 13:47 Intake & Output 05/10/19 05/11/19 05/12/19 06:59 06:59 06:59 Intake Total 480 770 Output Total 200 250 Balance 280 520 Weight 213 lb 13.574 oz Exam: General appearance: no acute distress, well-nourished Eye exam: EOMI Neck exam: full ROM. no tenderness Respiratory exam: clear to auscultation radha, unlabored. no rhonchi, tachypnea, wheezes Cardiovascular exam: RRR, +S1, +S2 GI/Abdominal exam: normal bowel sounds, soft. no tenderness Rectal exam: deferred Extremities exam: +2 edema, other - LLE, anteriorly, mid leg with abrasion like wound, bloody drainage Skin exam: skin tears, other - Chronic skin changes bilaterally Results Laboratory Results: 05/11/19 06:50 05/11/19 06:50 05/10/19 05/10/19 05/10/19 16:03 16:03 16:03 WBC 4.7 RBC 4.58 Hgb 16.0 Hct 44.9 MCV 98 H MCH 35.0 H MCHC 35.6 RDW 17.1 H Plt Count 79 L Seg Neutrophils % 82.6 H VBG pH 7.42 VBG pCO2 49.7 VBG HCO3 31.4 VBG Base Excess 5.6 Sodium 137.9 Potassium 3.7 Chloride 98 Carbon Dioxide 31 H Anion Gap 9 BUN 5 L Creatinine 0.49 L Est GFR ( Amer) > 60 Glucose 118 H Lactic Acid Calcium 8.5 Magnesium Total Bilirubin 3.3 H AST 92 H Alkaline Phosphatase 190 H C-Reactive Protein Total Protein 10.2 H Albumin 4.0 Urine Color Urine Appearance Urine pH Ur Specific [place] Urine Protein Urine Glucose (UA) Urine Ketones Urine Blood Urine Nitrite Ur Leukocyte Esterase Urine WBC (Auto) Urine RBC (Auto) 05/10/19 05/10/19 05/10/19 16:03 16:05 18:50 WBC RBC Hgb Hct MCV MCH MCHC RDW Plt Count Seg Neutrophils % VBG pH VBG pCO2 VBG HCO3 VBG Base Excess Sodium Potassium Chloride Carbon Dioxide Anion Gap BUN Creatinine Est GFR ( Amer) Glucose Lactic Acid 1.7 Calcium Magnesium Total Bilirubin AST Alkaline Phosphatase C-Reactive Protein 34.6 H Total Protein Albumin Urine Color PRAKASH Urine Appearance SLIGHTLY-CLOUDY Urine pH 7.0 Ur Specific [place] 1.016 Urine Protein 30 H Urine Glucose (UA) 50 H Urine Ketones NEGATIVE Urine Blood NEGATIVE Urine Nitrite NEGATIVE Ur Leukocyte Esterase NEGATIVE Urine WBC (Auto) 3 Urine RBC (Auto) 1 05/11/19 05/11/19 06:50 06:50 WBC 3.7 L RBC 3.72 L Hgb 12.9 L D Hct 36.4 L MCV 98 H MCH 34.7 H MCHC 35.4 RDW 17.0 H Plt Count 67 L Seg Neutrophils % VBG pH VBG pCO2 VBG HCO3 VBG Base Excess Sodium 134.4 L Potassium 3.4 L Chloride 100 Carbon Dioxide 30 Anion Gap 4 L BUN 10 Creatinine 0.48 L Est GFR ( Amer) > 60 Glucose 117 H Lactic Acid Calcium 7.7 L Magnesium 1.7 Total Bilirubin 3.8 H AST 66 H Alkaline Phosphatase 133 H C-Reactive Protein Total Protein 7.7 Albumin 2.9 L Urine Color Urine Appearance Urine pH Ur Specific [place] Urine Protein Urine Glucose (UA) Urine Ketones Urine Blood Urine Nitrite Ur Leukocyte Esterase Urine WBC (Auto) Urine RBC (Auto) Impressions: Tibia/Fibula X-Ray 05/10/19 15:11 IMPRESSION: No acute osseous abnormality of the left tibia and fibula. Venous Doppler Study 05/10/19 17:11 IMPRESSION: NO EVIDENCE OF DVT OR SVT IN THE LEFT LEG. Abdomen Ultrasound 05/11/19 08:00 IMPRESSION: 1. Heterogeneous liver without mass. 2. No gross ascites. 3. Splenomegaly, nearly 19 cm. Assessment and Plan - Plan Summary Summary: (1) Leg ulcer Is this a current diagnosis for this admission?: Yes Plan: Patient was placed on clindamycin. Wound cultures positive for gram-negative rods. Switch to oral Keflex. Monitor clinically. Patient is not diabetic. Hemoglobin A1c 5.1. (2) Hypertension Qualifiers: Hypertension type: unspecified Qualified Code(s): I10 - Essential (primary) hypertension Is this a current diagnosis for this admission?: Yes Plan: Continue his antihypertensive (3) Thrombocytopenia Is this a current diagnosis for this admission?: Yes Plan: Patient is alcoholic. Thrombocytopenia is chronic. Follow-up outpatient. No active bleeding.
[2019-05-11] MEDS: CEPHALEXIN 500 MG CAPSULE PO SCH ×2 (17:58→17:59)
[2019-05-12] MEDS: CEPHALEXIN 500 MG CAPSULE PO SCH (05:36)
[2019-05-12] MEDS: ACETAMINOPHEN 325 MG TABLET PO PRN (05:37)
[2019-05-12] MEDS: DOCUSATE SODIUM 100 MG CAPSULE PO SCH (09:26)
[2019-05-12 10:37] LABS: HEMATOCRIT 36.3 % (37.9-51.0); MEAN CORPUSCULAR HEMOGLOBIN 35.1 pg (27.0-33.4); MEAN CORPUSCULAR HGB CONC 35.8 g/dL (32.0-36.0); MEAN CORPUSCULAR VOLUME 98 fl (80-97); RED BLOOD COUNT 3.71 10^6/uL (4.35-5.55); RED CELL DISTRIBUTION WIDTH 17.5 % (11.5-14.0); WHITE BLOOD COUNT 2.8 10^3/uL (4.0-10.5)
[2019-05-12 10:56] LABS: ANION GAP 7 (5-19); BLOOD UREA NITROGEN 11 mg/dL (7-20); CALCIUM 7.8 mg/dL (8.4-10.2); CARBON DIOXIDE 28 mmol/L (22-30); CHLORIDE 100 mmol/L (98-107); GLUCOSE 169 mg/dL (75-110); POTASSIUM 3.2 mmol/L (3.6-5.0)
[2019-05-12 11:09] LABS: PLATELET COUNT 60 10^3/uL (150-450)
--- NOTE | 2019-05-12 14:46 | PDOC PROGRESS REPORT ---
Subjective Progress Note for:: 05/12/19 Subjective:: History of Present Illness: NATALIE ZHANG is a 53 year old male Patient presents to the emergency room with swelling and pain in his legs. Patient is Nepali-speaking and most of the information is obtained from the ED records He apparently fell about 3 weeks ago at home and he scraped his left quiroz on a step. He has since had some drainage and swelling of the same leg. He really does not proceed a physician but came here today due to his symptoms. Doppler studies were done and this revealed no embolism give a prior history of hypertension and his blood Barry was found to be mildly elevated Interval history: 05/11/2019: patient was seen and examined. his A1c 5.1. his wound actually looks better and he feels better. his wound culture positive for GNR. 05/12/2019: Patient was seen and examined. Wound cultures positive for Klebsiella. We will switch him to Augmentin instead of Keflex. He needs wound consult. Physical examination: General appearance: no acute distress, well-nourished Eye exam: EOMI Neck exam: full ROM. no tenderness Respiratory exam: clear to auscultation radha, unlabored. no rhonchi, tachypnea, wheezes Cardiovascular exam: RRR, +S1, +S2 GI/Abdominal exam: normal bowel sounds, soft. no tenderness Rectal exam: deferred Extremities exam: +2 edema, other - LLE, anteriorly, mid leg with abrasion like wound, bloody drainage Skin exam: skin tears, other - Chronic skin changes bilaterally Reason For Visit: DIABETIC LEG ULCER Physical Exam Vital Signs: Temp Pulse Resp BP Pulse Ox 97.8 F 83 16 154/87 H 94 05/12/19 11:13 05/12/19 13:00 05/12/19 13:00 05/12/19 11:13 05/12/19 13:00 Intake & Output 05/11/19 05/12/19 05/13/19 06:59 06:59 06:59 Intake Total 480 1010 240 Output Total 200 250 250 Balance 280 760 -10 Weight 213 lb 13.574 oz 224 lb 6.889 oz Results Laboratory Results: 05/12/19 10:15 05/12/19 10:15 05/12/19 05/12/19 10:15 10:15 WBC 2.8 L RBC 3.71 L Hgb 13.0 L Hct 36.3 L MCV 98 H MCH 35.1 H MCHC 35.8 RDW 17.5 H Plt Count 60 L Sodium 135.1 L Potassium 3.2 L Chloride 100 Carbon Dioxide 28 Anion Gap 7 BUN 11 Creatinine 0.49 L Est GFR ( Amer) > 60 Glucose 169 H Calcium 7.8 L Magnesium 1.9 05/10/19 19:45 Leg - Lower Gram Stain - Final Impressions: Tibia/Fibula X-Ray 05/10/19 15:11 IMPRESSION: No acute osseous abnormality of the left tibia and fibula. Venous Doppler Study 05/10/19 17:11 IMPRESSION: NO EVIDENCE OF DVT OR SVT IN THE LEFT LEG. Abdomen Ultrasound 05/11/19 08:00 IMPRESSION: 1. Heterogeneous liver without mass. 2. No gross ascites. 3. Splenomegaly, nearly 19 cm. Assessment and Plan - Plan Summary Summary: (1) Leg ulcer Is this a current diagnosis for this admission?: Yes Plan: Patient was placed on clindamycin and then switched to oral Keflex. Wound cultures positive for Klebsiella. Will switch to Augmentin. Monitor clinically. Patient is not diabetic. Hemoglobin A1c 5.1. Patient will need wound care consult. (2) Hypertension Qualifiers: Hypertension type: unspecified Qualified Code(s): I10 - Essential (primary) hypertension Is this a current diagnosis for this admission?: Yes Plan: Continue his antihypertensive (3) Thrombocytopenia Is this a current diagnosis for this admission?: Yes Plan: Patient is alcoholic. Thrombocytopenia is chronic. Follow-up outpatient. No active bleeding.
[2019-05-12] MEDS ORDERED: POTASSIUM CHLORIDE 20 MEQ PACKET PO ONE (15:30)
[2019-05-12 16:14] LABS: ANION GAP 5 (5-19); BLOOD UREA NITROGEN 11 mg/dL (7-20); CALCIUM 7.9 mg/dL (8.4-10.2); CARBON DIOXIDE 27 mmol/L (22-30); CHLORIDE 101 mmol/L (98-107); GLUCOSE 109 mg/dL (75-110)
[2019-05-12] MEDS: POTASSI CL 20 MEQ/50 ML RIDER 20 MEQ/50 ML RTUPB IV SCH ×2 (16:24→18:23)
[2019-05-12] MEDS: AMOXICILLIN TR/POT CLAVULANATE 875-125 MG TAB PO SCH (17:35)
--- NOTE | 2019-05-12 18:40 | PDOC CONSULTATION ---
Consultation Consult Date: 05/12/19 Provider Consulted: SURGICAL SURGICALIST MD Consult reason:: Left leg ulcer, chronic venous stasis History of Present Illness Admission Date/PCP: 05/10/19 19:09 History of Present Illness: NATALIE ZHANG is a 53 year old male seen in consultation at the request of the hospitalist service. This is a patient with a long history of venous insufficiency. The patient does not wear compression hose per his report. He denies chest pain, shortness of breath, fevers, chills, nausea, vomiting, melena, hematochezia, hematemesis, headache. He does report pain in his left lower extremity. His pain is mild to moderate. It is a throbbing ache. Palpation makes it worse. Nothing makes it better. Past Medical History Cardiac Medical History: Reports: Hypertension Skin Medical History: Reports: Other - Chronic venous insufficiency, bilateral lower extremities Past Surgical History Past Surgical History: Reports: None Social History Lives with: Family Smoking Status: Never Smoker - Advance Directive Resuscitation Status: Full Code Family History Family History: DM, Hypertension Parental Family History Reviewed: Yes Children Family History Reviewed: Yes Sibling(s) Family History Reviewed.: Yes Medication/Allergy Home Medications: No Home Medications 05/10/19 Allergies/Adverse Reactions: acetaminophen [From Tylenol] Adverse Reaction (Unknown, Verified 05/10/19 21:15) Disorientation Review of Systems Constitutional: ABSENT: anorexia, chills, fatigue Eyes: ABSENT: visual disturbances Ears: ABSENT: hearing changes Nose, Mouth, and Throat: ABSENT: sore throat Cardiovascular: PRESENT: edema. ABSENT: chest pain Respiratory: ABSENT: cough Gastrointestinal: ABSENT: abdominal pain, nausea, vomiting Genitourinary: ABSENT: dysuria Musculoskeletal: ABSENT: back pain Integumentary: PRESENT: wounds Neurological: ABSENT: abnormal speech, confusion, convulsions, dizziness Psychiatric: ABSENT: anxiety, depression Endocrine: ABSENT: cold intolerance, heat intolerance Hematologic/Lymphatic: ABSENT: easy bleeding, easy bruising Physical Exam Vital Signs: Temp Pulse Resp BP Pulse Ox 97.9 F 81 18 151/89 H 96 05/12/19 15:55 05/12/19 15:55 05/12/19 15:55 05/12/19 15:55 05/12/19 15:55 Intake & Output 05/11/19 05/12/19 05/13/19 06:59 06:59 06:59 Intake Total 480 1010 1415 Output Total 200 250 450 Balance 280 760 965 Weight 97 kg 101.8 kg General appearance: PRESENT: no acute distress, cooperative, obese Head exam: PRESENT: atraumatic, normocephalic Eye exam: PRESENT: EOMI, PERRLA. ABSENT: scleral icterus Mouth exam: PRESENT: moist, neck supple Neck exam: ABSENT: meningismus, tenderness, thyromegaly, tracheal deviation Cardiovascular exam: ABSENT: tachycardia Vascular exam: PRESENT: other - Gaiter sign bilateral lower extremities. GI/Abdominal exam: PRESENT: soft. ABSENT: distended, tenderness Rectal exam: PRESENT: deferred Extremities exam: PRESENT: +2 edema, other - Wound to left anterior leg. The base of the wound is clean. There is granulation tissue present. There is no obvious purulence or necrotic tissue. Neurological exam: PRESENT: alert, awake, oriented to person, oriented to place, oriented to time, oriented to situation Psychiatric exam: ABSENT: agitated, anxious, depressed Focused psych exam: ABSENT: delusional Skin exam: ABSENT: cyanosis, jaundice Results Laboratory Results: 05/12/19 10:15 05/12/19 15:37 05/12/19 05/12/19 05/12/19 10:15 10:15 15:37 WBC 2.8 L RBC 3.71 L Hgb 13.0 L Hct 36.3 L MCV 98 H MCH 35.1 H MCHC 35.8 RDW 17.5 H Plt Count 60 L Sodium 135.1 L 133.4 L Potassium 3.2 L 4.0 Chloride 100 101 Carbon Dioxide 28 27 Anion Gap 7 5 BUN 11 11 Creatinine 0.49 L 0.47 L Est GFR ( Amer) > 60 > 60 Glucose 169 H 109 Calcium 7.8 L 7.9 L Magnesium 1.9 1.8 05/10/19 19:45 Leg - Lower Gram Stain - Final Impressions: Tibia/Fibula X-Ray 05/10/19 15:11 IMPRESSION: No acute osseous abnormality of the left tibia and fibula. Venous Doppler Study 05/10/19 17:11 IMPRESSION: NO EVIDENCE OF DVT OR SVT IN THE LEFT LEG. Abdomen Ultrasound 05/11/19 08:00 IMPRESSION: 1. Heterogeneous liver without mass. 2. No gross ascites. 3. Splenomegaly, nearly 19 cm. Assessment & Plan - Diagnosis (1) Chronic venous insufficiency of lower extremity Is this a current diagnosis for this admission?: Yes (2) Leg wound, left Qualifiers: Encounter type: initial encounter Qualified Code(s): S81.802A - Unspecified open wound, left lower leg, initial encounter Is this a current diagnosis for this admission?: Yes - Plan Summary Plan Summary: This a 53-year-old male with a traumatic wound to left lower extremity. He also has severe venous insufficiency. The patient does not use compression. The wound itself appears clean, without signs of active infection or necrosis. There is granulation in the base. The wound is shallow. I have recommended damp to dry dressing changes twice daily. The patient also must wear therapeutic compression stockings. Compression will be mandatory if healing is to occur. He still has significant edema present. Healing will be difficult and/or impossible without reduction of his edema. I do not see any sign of abscess, or reason for surgical intervention at this time. I have left detailed instructions with the nursing staff for damp to dry dressing changes twice daily. The patient should wear compression stockings at all times, unless showering. The patient will need follow-up with the wound care clinic. He may follow-up with [facility] as needed. Surgery will sign off at this time. Please renotify with any questions or concerns.
[2019-05-13] MEDS: ACETAMINOPHEN 325 MG TABLET PO PRN ×2 (00:20→11:08)
[2019-05-13] MEDS: AMOXICILLIN TR/POT CLAVULANATE 875-125 MG TAB PO SCH (05:42)
[2019-05-13 07:50] LABS: HEMATOCRIT 37.6 % (37.9-51.0); HEMOGLOBIN 13.3 g/dL (13.5-17.0); MEAN CORPUSCULAR HEMOGLOBIN 34.7 pg (27.0-33.4); MEAN CORPUSCULAR HGB CONC 35.4 g/dL (32.0-36.0); MEAN CORPUSCULAR VOLUME 98 fl (80-97); RED BLOOD COUNT 3.82 10^6/uL (4.35-5.55); RED CELL DISTRIBUTION WIDTH 17.2 % (11.5-14.0); WHITE BLOOD COUNT 3.1 10^3/uL (4.0-10.5)
[2019-05-13 08:38] LABS: PLATELET COUNT 62 10^3/uL (150-450)
[2019-05-13] MEDS: DOCUSATE SODIUM 100 MG CAPSULE PO SCH (09:07)
--- NOTE | 2019-05-13 11:23 | PDOC DISCHARGE SUMMARY ---
Impression - Admit/DC Date/PCP Admission Date/Primary Care Provider: 05/10/19 19:09 Discharge Date: 05/13/19 - Discharge Diagnosis (1) Chronic venous insufficiency of lower extremity Is this a current diagnosis for this admission?: Yes (2) Hypertension Is this a current diagnosis for this admission?: Yes (3) Leg wound, left Is this a current diagnosis for this admission?: Yes (4) Thrombocytopenia Is this a current diagnosis for this admission?: Yes - Additional Information Resuscitation Status: Full Code Discharge Activity: Activity As Tolerated Referrals: [facility] [Outside] ([facility] IS GOING TO BE SET UP PER FINANCIAL ACCOUNTANT ONCE ITS SETUP THROUGH [facility] THEY WILL GIVE THEM THE APPT TIME AND DATE.) Prescriptions: Amoxicillin/Potassium Clav [Augmentin 875-125 Tablet] 1 tab PO Q12A #10 tablet Home Medications: Amoxicillin/Potassium Clav [Augmentin 875-125 Tablet] 1 tab PO Q12A #10 tablet 05/13/19 History of Present Illiness History of Present Illness: Reason For Visit: DIABETIC LEG ULCER History of Present Illness: NATALIE ZHANG is a 53 year old male Patient presents to the emergency room with swelling and pain in his legs. Patient is [place]-speaking and most of the information is obtained from the ED records He apparently fell about 3 weeks ago at home and he scraped his left quiroz on a step. He has since had some drainage and swelling of the same leg. He really does not proceed a physician but came here today due to his symptoms. Doppler studies were done and this revealed no embolism give a prior history of hypertension and his blood Barry was found to be mildly elevated Hospital Course Hospital Course: Interval history: 05/11/2019: patient was seen and examined. his A1c 5.1. his wound actually looks better and he feels better. his wound culture positive for GNR. 05/12/2019: Patient was seen and examined. Wound cultures positive for Klebsiella. We will switch him to Augmentin instead of Keflex. He needs wound consult. Hospital course (1) Leg ulcer Patient was placed on clindamycin and then switched to oral Keflex. Wound cultures positive for Klebsiella and MSSA. Then switched to Augmentin. Monitor clinically. Patient is not diabetic. Hemoglobin A1c 5.1. Will discharge on 5 days course of oral Augmentin. Was evaluated by general surgery and will be discharged to home. He will need wound care outpatient. multimedia services manager to arrange for that prior to discharge. (2) Hypertension On any medications. Follow-up outpatient. (3) Thrombocytopenia Patient is alcoholic. Thrombocytopenia is chronic. Follow-up outpatient. No active bleeding. Physical Exam Vital Signs: Temp Pulse Resp BP Pulse Ox 97.8 F 78 18 158/84 H 93 05/13/19 07:31 05/13/19 07:31 05/13/19 07:31 05/13/19 07:31 05/13/19 07:31 Intake & Output 05/12/19 05/13/19 05/14/19 06:59 06:59 06:59 Intake Total 1010 1465 Output Total 250 1250 Balance 760 215 Weight 224 lb 6.889 oz 222 lb 10.67 oz Exam: Physical examination: General appearance: no acute distress, well-nourished Eye exam: EOMI Neck exam: full ROM. no tenderness Respiratory exam: clear to auscultation radha, unlabored. no rhonchi, tachypnea, wheezes Cardiovascular exam: RRR, +S1, +S2 GI/Abdominal exam: normal bowel sounds, soft. no tenderness Rectal exam: deferred Extremities exam: +2 edema, other - LLE, anteriorly, mid leg with abrasion like wound, bloody drainage Skin exam: skin tears, other - Chronic skin changes bilaterally Results Laboratory Results: WBC 3.1 10^3/uL (4.0-10.5) L 05/13/19 06:59 RBC 3.82 10^6/uL (4.35-5.55) L 05/13/19 06:59 Hgb 13.3 g/dL (13.5-17.0) L 05/13/19 06:59 Hct 37.6 % (37.9-51.0) L 05/13/19 06:59 MCV 98 fl (80-97) H 05/13/19 06:59 MCH 34.7 pg (27.0-33.4) H 05/13/19 06:59 MCHC 35.4 g/dL (32.0-36.0) 05/13/19 06:59 RDW 17.2 % (11.5-14.0) H 05/13/19 06:59 Plt Count 62 10^3/uL (150-450) L 05/13/19 06:59 Lymph % (Auto) 9.6 % (13-45) L 05/10/19 16:03 [place] % (Auto) 6.6 % (3-13) 05/10/19 16:03 Eos % (Auto) 0.9 % (0-6) 05/10/19 16:03 Baso % (Auto) 0.3 % (0-2) 05/10/19 16:03 Absolute Neuts (auto) 3.9 10^3/uL (1.7-8.2) 05/10/19 16:03 Absolute Lymphs (auto) 0.5 10^3/uL (0.5-4.7) 05/10/19 16:03 Absolute Monos (auto) 0.3 10^3/uL (0.1-1.4) 05/10/19 16:03 Absolute Eos (auto) 0.0 10^3/uL (0.0-0.6) 05/10/19 16:03 Absolute Basos (auto) 0.0 10^3/uL (0.0-0.2) 05/10/19 16:03 Seg Neutrophils % 82.6 % (42-78) H 05/10/19 16:03 VBG pH 7.42 (7.30-7.42) 05/10/19 16:03 VBG pCO2 49.7 mmHg (35-63) 05/10/19 16:03 VBG HCO3 31.4 mmol/L (20-32) 05/10/19 16:03 VBG Base Excess 5.6 mmol/L 05/10/19 16:03 Sodium 133.4 mmol/L (137-145) L 05/12/19 15:37 Potassium 4.0 mmol/L (3.6-5.0) 05/12/19 15:37 Chloride 101 mmol/L (98-107) 05/12/19 15:37 Carbon Dioxide 27 mmol/L (22-30) 05/12/19 15:37 Anion Gap 5 (5-19) 05/12/19 15:37 BUN 11 mg/dL (7-20) 05/12/19 15:37 Creatinine 0.47 mg/dL (0.52-1.25) L 05/12/19 15:37 Est GFR ( Amer) > 60 (>60) 05/12/19 15:37 Est GFR (MDRD) Non-Af > 60 (>60) 05/12/19 15:37 Glucose 109 mg/dL (75-110) 05/12/19 15:37 POC Glucose 97 mg/dL (70-110) 05/13/19 06:00 Hemoglobin A1c % 5.1 % (4.7-6.0) 05/11/19 06:50 Lactic Acid 1.7 mmol/L (0.7-2.1) 05/10/19 16:03 Calcium 7.9 mg/dL (8.4-10.2) L 05/12/19 15:37 Magnesium 1.8 mg/dL (1.6-2.3) 05/12/19 15:37 Total Bilirubin 3.8 mg/dL (0.2-1.3) H 05/11/19 06:50 Direct Bilirubin 0.8 mg/dL (0.0-0.4) H 05/11/19 06:50 Neonat Total Bilirubin Not Reportable 05/11/19 06:50 Neonat Direct Bilirubin Not Reportable 05/11/19 06:50 Neonat Indirect Bili Not Reportable 05/11/19 06:50 AST 66 U/L (17-59) H 05/11/19 06:50 ALT 26 U/L (<50) 05/11/19 06:50 Alkaline Phosphatase 133 U/L (38-126) H 05/11/19 06:50 C-Reactive Protein 34.6 mg/L (<10.0) H 05/10/19 16:05 Total Protein 7.7 g/dL (6.3-8.2) 05/11/19 06:50 Albumin 2.9 g/dL (3.5-5.0) L 05/11/19 06:50 Urine Color PRAKASH 05/10/19 18:50 Urine Appearance SLIGHTLY-CLOUDY 05/10/19 18:50 Urine pH 7.0 (5.0-9.0) 05/10/19 18:50 Ur Specific [place] 1.016 05/10/19 18:50 Urine Protein 30 mg/dL (NEGATIVE) H 05/10/19 18:50 Urine Glucose (UA) 50 mg/dL (NEGATIVE) H 05/10/19 18:50 Urine Ketones NEGATIVE mg/dL (NEGATIVE) 05/10/19 18:50 Urine Blood NEGATIVE (NEGATIVE) 05/10/19 18:50 Urine Nitrite NEGATIVE (NEGATIVE) 05/10/19 18:50 Urine Bilirubin SMALL (NEGATIVE) H 05/10/19 18:50 Urine Urobilinogen 4.0 mg/dL (<2.0) H 05/10/19 18:50 Ur Leukocyte Esterase NEGATIVE (NEGATIVE) 05/10/19 18:50 Urine WBC (Auto) 3 /HPF 05/10/19 18:50 Urine RBC (Auto) 1 /HPF 05/10/19 18:50 Squamous Epi Cells Auto 2 /HPF 05/10/19 18:50 Urine Mucus (Auto) FEW /LPF 05/10/19 18:50 Urine Ascorbic Acid NEGATIVE (NEGATIVE) 05/10/19 18:50 Impressions: Tibia/Fibula X-Ray 05/10/19 15:11 IMPRESSION: No acute osseous abnormality of the left tibia and fibula. Venous Doppler Study 05/10/19 17:11 IMPRESSION: NO EVIDENCE OF DVT OR SVT IN THE LEFT LEG. Abdomen Ultrasound 05/11/19 08:00 IMPRESSION: 1. Heterogeneous liver without mass. 2. No gross ascites. 3. Splenomegaly, nearly 19 cm. Plan Time Spent: Greater than 30 Minutes Stroke Is this a Stroke Patient?: No Acute Heart Failure - Is this a Heart Failure Patient?: No
[2019-05-13 14:00] VITALS: BP 167/93
== END 2019-05-13 15:31 | disposition home or self-care (01) | DRG 605 ==
LOC: ER 14:44 → EH 19:09 → 4N 21:30
PROVIDERS: ADMIT Internal Medicine; ATTEND Family Medicine
PROC: 3E0234Z Introduction of Serum, Toxoid and Vaccine into Muscle, Percutaneous Approach (ICD-10-PCS; principal; 2019-05-10)
DX: S80.812A Abrasion, left lower leg, initial encounter (principal); I87.2 Venous insufficiency (chronic) (peripheral); I10 Essential (primary) hypertension; D69.6 Thrombocytopenia, unspecified; B95.61 Methicillin susceptible Staphylococcus aureus infection as the cause of diseases classified elsewhere; B95.1 Streptococcus, group B, as the cause of diseases classified elsewhere; B96.5 Pseudomonas (aeruginosa) (mallei) (pseudomallei) as the cause of diseases classified elsewhere; F10.20 Alcohol dependence, uncomplicated; W10.8XXA Fall (on) (from) other stairs and steps, initial encounter; Y90.9 Presence of alcohol in blood, level not specified; Y93.89 Activity, other specified; Y92.018 Other place in single-family (private) house as the place of occurrence of the external cause; Z79.84 Long term (current) use of oral hypoglycemic drugs; Z23 Encounter for immunization
CPT/HCPCS: 36415; 76700; 80048; 80053; 81001; 82803; 82962; 83036; 83605; 83735; 85025; 85027; 86140; 87040; 87070; 87077; 87186; 87205; 90471; 90715; 93971; 93976; 96365; 96367; 99284; J0295; J3370; J3480; J3490